=== PATIENT | male | born 1930 | race Caucasian/White ===

== ENCOUNTER 2018-02-04 12:37 | Emergency (ER) | payer MEDICARE ==
[~2018-02-04] VITALS: Ht 170.2 cm; Wt 86.4 kg
[2018-02-04 12:42] VITALS: Ht 170.2 cm; Wt 86.4 kg
[2018-02-04] MEDS ORDERED: PLAVIX75 MG PO (12:46)
[2018-02-04] MEDS ORDERED: ASPIRIN81 MG (12:47)
[2018-02-04] MEDS ORDERED: ALTACE5 MG (12:47)
[2018-02-04] MEDS ORDERED: ZOCOR80 MG PO (12:47)
[2018-02-04 13:13] LABS: APPEARANCE CLEAR (CLEAR); COLOR YELLOW (YELLOW)
[2018-02-04 13:14] LABS: BILIRUBIN NEGATIVE (NEGATIVE); GLUCOSE NEGATIVE (NEGATIVE); KETONE NEGATIVE (NEGATIVE); NITRITE NEGATIVE (NEGATIVE); PROTEIN NEGATIVE (NEGATIVE); SPECIFIC GRAVITY 1.025 (1.005-1.020); UROBILINOGEN NORMAL (NORMAL)
[2018-02-04 14:37] LABS: BASOPHILS 0.1 % (0-2); EOSINOPHILS 0.2 % (0-7); HEMATOCRIT 37.1 % (42.0-54.0); HEMOGLOBIN 12.4 g/dL (13.5-17.5); IMMATURE GRANULOCYTES 0.4 % (0-5); LYMPHOCYTES 5.4 % (15-50); MCH 32.5 pg (26.0-34.0); MCHC 33.4 g/dL (31.0-37.0); MCV 97.1 fL (80.0-100.0); MEAN PLATELET VOLUME 10.6 fL (7.4-10.4); MONOCYTES 9.4 % (2-11); NEUTROPHILS 84.5 % (40-80); PLATELET COUNT 186 10x3/uL (130-400); RBC 3.82 10x6/uL (4.20-6.10); RDW 13.4 % (11.5-14.5); WBC 10.2 10x3/uL (4.8-10.8)
[2018-02-04 14:48] LABS: ALKALINE PHOSPHATASE 68 U/L (46-116); ALT (SGPT) 15 U/L (10-68); AMYLASE - SERUM 36 U/L (25-115); BILIRUBIN - TOTAL 0.72 mg/dL (0.2-1.3); CALC OSMOLALITY 278 mosm/kg (275-300); CALCIUM 8.7 mg/dL (8.5-10.1); CARBON DIOXIDE 25.7 mmol/L (21.0-32.0); CHLORIDE - SERUM 105 mmol/L (98-107); CREATININE - SERUM 0.9 mg/dL (0.6-1.3); GLUCOSE 108 mg/dL (74-106); LIPASE 75 U/L (73-393); PROTEIN - SERUM 5.7 g/dL (6.4-8.2); SODIUM 138 mmol/L (136-145); UREA NITROGEN 19 mg/dL (7-18); eGFR NON AFRICAN AMERICAN 85 mL/min (90-120)
[2018-02-04] MEDS ORDERED: LOMOTIL 2.5-0.1 EAC1 PO (17:00)
[2018-02-04 18:06] VITALS: BP 111/62
== END 2018-02-04 18:07 | disposition home or self-care (01) ==
LOC: D.ER 12:37
PROVIDERS: Emergency Medicine
DX: R10.32 Left lower quadrant pain (principal); I25.10 Atherosclerotic heart disease of native coronary artery without angina pectoris; I10 Essential (primary) hypertension

== ENCOUNTER 2018-11-18 10:51 | Inpatient (IN) | payer MEDICARE, MEDICAID ==
[~2018-11-18] VITALS: Ht 170.2 cm; Wt 86.4 kg
[~2018-11-18 10:51] MED LIST: ALTACE5 MG; ASPIRIN81 MG PO; LOMOTIL 2.5-0.1 EAC1 PO; PLAVIX75 MG PO; ZOCOR80 MG PO
[2018-11-18 11:27] LABS: BASOPHILS 0.1 % (0-2); EOSINOPHILS 0.2 % (0-7); HEMOGLOBIN 13.8 g/dL (13.5-17.5); IMMATURE GRANULOCYTES 0.3 % (0-5); LYMPHOCYTES 11.3 % (15-50); MCH 32.4 pg (26.0-34.0); MCHC 34.5 g/dL (31.0-37.0); MCV 93.9 fL (80.0-100.0); MEAN PLATELET VOLUME 11.1 fL (7.4-10.4); MONOCYTES 12.1 % (2-11); RBC 4.26 10x6/uL (4.20-6.10); RDW 13.1 % (11.5-14.5); WBC 9.1 10x3/uL (4.8-10.8)
[2018-11-18 11:28] LABS: PLATELET COUNT 257 10x3/uL (130-400)
[2018-11-18 11:42] LABS: INR 1.12 (0.85-1.17); PROTIME 13.9 SECONDS (11.6-15.0)
[2018-11-18 11:56] LABS: ALBUMIN 3.2 g/dL (3.4-5.0); ALKALINE PHOSPHATASE 77 U/L (46-116); ALT (SGPT) 16 U/L (10-68); BILIRUBIN - TOTAL 0.57 mg/dL (0.2-1.3); CALC OSMOLALITY 278 mosm/kg (275-300); CALCIUM 8.7 mg/dL (8.5-10.1); CARBON DIOXIDE 28.3 mmol/L (21.0-32.0); CHLORIDE - SERUM 104 mmol/L (98-107); GLUCOSE 109 mg/dL (74-106); PROTEIN - SERUM 6.3 g/dL (6.4-8.2); SODIUM 138 mmol/L (136-145); UREA NITROGEN 18 mg/dL (7-18); eGFR NON AFRICAN AMERICAN 75 mL/min (90-120)
[2018-11-18 12:06] LABS: CREATINE KINASE 31 UL (21-232); LIPASE 102 U/L (73-393); MAGNESIUM - SERUM 1.9 mg/dL (1.8-2.4); PRO BNP 1563 pg/mL (0-450); THYROID STIMULATING HORMONE 0.91 uIU/mL (0.36-3.74); TROPONIN-I < 0.017 ng/mL (0.000-0.060)
[2018-11-18 12:49] LABS: APPEARANCE CLEAR (CLEAR); BILIRUBIN NEGATIVE (NEGATIVE); COLOR YELLOW (YELLOW); GLUCOSE NEGATIVE (NEGATIVE); KETONE NEGATIVE (NEGATIVE); NITRITE NEGATIVE (NEGATIVE); PROTEIN NEGATIVE (NEGATIVE); SPECIFIC GRAVITY 1.015 (1.005-1.020); UROBILINOGEN NORMAL (NORMAL)
[2018-11-18 13:16] VITALS: BP 90/66
--- NOTE | 2018-11-18 14:22 | NUR ---
PATIENT ARRIVED TO THE FLOOR FROM THE ER VIA BED WITH A HOSPITAL PERSONEL. HE IS ALERT AND ORIENTED AND DENIES ANY NEEDS AT THIS TIME. HE WAS ADMITTED FOR PNEUMONIA, AND HE HAD BEEN REPORTING RIGHT LOWER CHEST PAIN. HE HAS UPPER ABD PAIN. HE IS ON ROOM AIR. THE HAS A 20 G IV IN HIS RIGHT FOREARM. HE HAS A B/P OF 90/[address] WAS AWARE. THE DR SAID HE DID NOT THINK GIVING A BOLUS WOULD BE APPROPRIATE BECAUSE PATIENT HAS A HX OF CHF.
[2018-11-18 15:11] VITALS: BP 97/59; Ht 170.2 cm; Wt 86.4 kg
[2018-11-18 16:00] VITALS: BP 97/59
--- NOTE | 2018-11-18 19:33 | NUR ---
EVENING ROUNDS MADE. PT LAYING IN BED RESTING. RESPIRATORY IN ROOM AT THIS TIME. PT DENIES PAIN. NO FURTHER CONCERNS. BED LOWERED AND LOCKED. CL IN REACH. WILL CTM.
[2018-11-18 20:00] VITALS: BP 107/48
--- NOTE | 2018-11-18 21:22 | NUR ---
VITALS STABLE. PT TOOK MEDS WITHOUT DIFFICULTY. DENIES PAIN AT THIS TIME. PT STATES THAT HE TAKES A SLEEPING PILL AT HOME. INFORMED PT THAT I WOULD CHECK TO SEE WHAT HE CAN HAVE. AFTER CHECKING PT EMAR, HE HAD NO SLEEPING PILL ORDERED. PT HOME MED REC WAS NOT COMPLETED ACCURATELY AND HIS HOME SLEEPING PILL WAS NOT LISTED AND THE PT WAS UNABLE TO TELL ME WHAT SLEEPING PILL HE TAKES AT HOME. HERNAN LE PAGED FOR ORDERS FOR A SLEEPING PILL FOR PT TONIGHT. ORDERS GIVEN FOR BENADRYL 50 MG ONE TIME. NO FURTHER ORDERS AT THIS TIME. FALL PRECAUTIONS IN PLACE. BED LOWERED AND LOCKED. CL IN REACH. WILL CTM.
--- NOTE | 2018-11-19 00:43 | NUR ---
I have reviewed this patient and I concur with the Shift Assessment completed by the Licensed Practical Nurse today this shift.
[2018-11-19 04:30] VITALS: BP 120/59
[2018-11-19 06:04] LABS: BASOPHILS 0 % (0-2); EOSINOPHILS 0.9 % (0-7); HEMATOCRIT 37.6 % (42.0-54.0); IMMATURE GRANULOCYTES 0.5 % (0-5); LYMPHOCYTES 20.4 % (15-50); MCH 32.6 pg (26.0-34.0); MCHC 34.6 g/dL (31.0-37.0); MCV 94.2 fL (80.0-100.0); MEAN PLATELET VOLUME 11.1 fL (7.4-10.4); MONOCYTES 13.3 % (2-11); NEUTROPHILS 64.9 % (40-80); PLATELET COUNT 211 10x3/uL (130-400); RBC 3.99 10x6/uL (4.20-6.10); RDW 13.1 % (11.5-14.5); WBC 7.6 10x3/uL (4.8-10.8)
[2018-11-19 06:43] LABS: ALBUMIN 2.9 g/dL (3.4-5.0); ALKALINE PHOSPHATASE 72 U/L (46-116); ALT (SGPT) 14 U/L (10-68); BILIRUBIN - TOTAL 0.59 mg/dL (0.2-1.3); CALC OSMOLALITY 276 mosm/kg (275-300); CALCIUM 8.4 mg/dL (8.5-10.1); CARBON DIOXIDE 25.7 mmol/L (21.0-32.0); CHLORIDE - SERUM 105 mmol/L (98-107); CREATININE - SERUM 0.9 mg/dL (0.6-1.3); GLUCOSE 99 mg/dL (74-106); PROTEIN - SERUM 5.8 g/dL (6.4-8.2); SODIUM 138 mmol/L (136-145); UREA NITROGEN 16 mg/dL (7-18); eGFR NON AFRICAN AMERICAN 84 mL/min (90-120)
[2018-11-19 08:32] VITALS: BP 138/67
[2018-11-19 11:50] VITALS: BP 135/63
[2018-11-19 15:26] VITALS: BP 137/66
--- NOTE | 2018-11-19 16:32 | NUR ---
SCD'S ON AND ACTIVE WHEN THE PATIENT IS IN THE BED AND ALLOWS
--- NOTE | 2018-11-19 19:12 | MORECARE ---
CASE MANAGEMENT DISCHARGE SUMMARY PATIENT: GENARO BAIRES UNIT: [id number] ADM DATE: 11/18/18 AGE: 88 : [birth year] SEX: M ROOM/BED: D.2105 AUTHOR: AUSTEN URBANO PHYSICIAN: REFERRING PHYSICIAN: CHASE KATE MD DATE OF SERVICE: 11/19/18 Discharge Plan Patient Name: GENARO BAIRES [facility] [facility] 1930 Planned Disposition: Home Anticipated Discharge Date: Discharge Date: Expected LOS: Initial Reviewer: [email or web address] Initial Review Date: 11/18/2018 Generated: 11/19/18 8:12 pm DCPIA - Discharge Planning Initial Assessment Updated by [email or web address]: Erika Lacey on 11/19/18 7:10 pm * Is the patient Alert and Oriented? Yes * How many steps to enter\exit or inside your home? 5 w/rail * PCP States he has no local MD. States he goes to [place] q6 months to see his MD at a clinic * Pharmacy [facility] * Preadmission Environment Home with Family * ADLs Independent * Equipment Cane Walker * Other Equipment denies any other DME * List name and contact numbers for known caregivers / representatives who currently or will assist patient after discharge: States he has a son and dtr . Does not wish to give contact information * Verbal permission to speak to the caregivers and representatives has been obtained from the patient. No * Community resources currently utilized None * Please name any agencies selected above. N/A * Additional services required to return to the preadmission environment? No * Can the patient safely return to the preadmission environment? Yes Patient Name: GENARO BAIRES Page [id number] at 1912 All edits/amendments must be made on the electronic document DICTATION DATE: 11/19/181911 SELF PAY SPECIALIST: SREE 11/19/181911 RPT#: [id number] DC DATE: STATUS: ADM IN [facility] [address] [place] [address] END OF REPORT
--- NOTE | 2018-11-19 19:21 | MORECARE ---
CASE MANAGEMENT DISCHARGE SUMMARY PATIENT: GENARO BAIRES UNIT: [id number] ADM DATE: 11/18/18 AGE: 88 : [birth year] SEX: M ROOM/BED: D.2105 AUTHOR: YOLIE,DOC PHYSICIAN: REFERRING PHYSICIAN: CHASE KATE MD DATE OF SERVICE: 11/19/18 Discharge Plan Patient Name: GENARO BAIRES Facility: [facility]:[place] : 1930 Planned Disposition: Home Anticipated Discharge Date: Discharge Date: Expected LOS: Initial Reviewer: [email or web address] Initial Review Date: 11/18/2018 Generated: 11/19/18 8:20 pm Comments DCP- Discharge Planning Updated by [email or web address]: Erika Lacey on 11/19/18 6:[address] CM MET WITH THE PATIENT AT THE BEDSIDE.. CM EXPLAINED MY ROLE. RECEIVED PERMISSION TO CONTINUE ASSESSMENT. HE IS UNHAPPY. STATES HE HAS NOT SEEN A DOCTOR OR HAD HIS MEDICATIONS. STATES HE WILL BE LEAVING AT 1999 IF NO ONE COMES. REPORTEDLY THE PATIENT HAD DISCUSSED LEAVING EARLIER BUT DECIDED TO STAY AFTER SPEAKING W/ THE NURSE. THE STAFF STATES HE WAS SEEN BY DR KATE AND HERNAN THE GEOSPATIAL TECHNOLOGIST. HE HAS MEDICATIONS ORDERED AND SIGNED GIVEN. REPORTED CONCERNS TO STAFF. STATES HE LIVES WITH HIS SON AND DAUGHTER. HE SAYS HE IS INDEPENDENT IN HIS CARE. HE HAS A CANE AND A WALKER. STATES HE RARELY USES THE WALKER. DENIES ANY OTHER DME. NO LOCAL MD. HE USES [facility]. DENIES ANY COMMUNITY OR HOME HEALTH SERVICES. DENIES ANY NEED FOR SERVICES. CM WILL FOLLOW TO ASSIST IS APPROPRIATE. DCPIA - Discharge Planning Initial Assessment Updated by [email or web address]: Erika Lacey on 11/19/18 7:10 pm * Is the patient Alert and Oriented? Yes * How many steps to enter\exit or inside your home? 5 w/rail * PCP States he has no local MD. States he goes to [place] q6 months to see his MD at a clinic * Pharmacy [facility] * Preadmission Environment Home with Family * ADLs Independent * Equipment Cane Walker * Other Equipment denies any other DME * List name and contact numbers for known caregivers / representatives who currently or will assist patient after discharge: States he has a son and dtr . Does not wish to give contact information * Verbal permission to speak to the caregivers and representatives has been obtained from the patient. No * Community resources currently utilized None * Please name any agencies selected above. N/A * Additional services required to return to the preadmission environment? No * Can the patient safely return to the preadmission environment? Yes Last DP export: 11/19/18 6:12 p Patient Name: GENARO BAIRES Page [id number] at 1921 All edits/amendments must be made on the electronic document DICTATION DATE: 11/19/181919 RETAIL SPECIALIST: SREE 11/19/181919 RPT#: [id number] DC DATE: STATUS: ADM IN [facility] [address] [place] [address] END OF REPORT
--- NOTE | 2018-11-19 19:23 | NUR ---
EVENING ROUNDS MADE. PT SITTING UP IN BED RESTING. DENIES PAIN AT THIS TIME. PT COMPLAINED TO CASE MANAGEMENT THAT HE HASNT SEEN A DOCTOR OR HASNT BEEN GETTING ANY MEDICATIONS. REASSURED PT THAT THE DOCTOR CAME TO SEE HIM TODAY AND THAT I WOULD BRING HIM HIS MEDICATIONS IN A FEW MINUTES. PT OKAY WITH POC. NO FURTHER CONCERNS AT THIS TIME. BED LOWERED AND LOCKED. CL IN REACH. WILL CMT.
--- NOTE | 2018-11-19 19:47 | NUR ---
PT IN [place] THAT HE HAS NOT SEEN A DOCTOR AND IS NOT GETTING MEDICATION. PT STATED THAT HE NEEDS HIS IV OUT AND HE IS LEAVING. ESCORTED PT BACK TO ROOM AND TRIED TO TALK INTO STAYING UNTIL T[place] UNTIL DR. CORBETT. ASSURED PT THAT THE DOCTOR SAW HIM TODAY AND THAT HE WAS GETTING THE APPROPRIATE TREATMENT. PT INSISTANT THAT HE LEAVE STATED "I AM GOING TO CALL THE POLICE." "I AM GOING TO LEAVE AND GO TO THE OTHER HOSPITAL AND TELL THEM HOW MUCH OF A SHIT HOLE THIS PLACE IS" AFTER TYRING TO CONTINUE TO CONVINCE PT TO CALM DOWN AND SIT DOWN, PT STATED THAT HIS SON WAS ON HIS WAY TO GET HIM. I INFORMED PT THAT HE WOULD NEED TO SIGN A AMA FORM AND EXPLAINED THAT INSURANCE WOULD NOT PAY FOR HIS STAY. PT STATED "I AM NOT SIGNING SHIT FOR YOUR BENEFIT" PAGED REY BECERRA. HE STATED THAT WE COULD NOT LET PT LEAVE AMA IF HE WAS CONFUSED. ASKED PT FULL SET OF QUESTIONS AND PT ANSWERED THEM CORRECTLY. PT A/O X 4. PT STATED "I AM 88 DAMN YEARS OLD AND I KNOW MY RIGHTS" INFORMED REY BECERRA. AMA FORMED SIGNED AND WITNESS BY NURSING STAFF THAT PT REFUSED TO SIGN. IV REMOVED TIP INTACT. PT TOLD HE WAS FREE TO LEAVE WHEN RIDE ARRIVED. NO FURTHER CONCERNS AT THIS TIME.
--- NOTE | 2018-11-19 20:42 | NUR ---
ASKED PT IF HE REMEMBERED HERNAN THE DOCTOR IN [place] COMING TO SEE HIM AND HAVING A LONG CONVERSTATION WITH HIM. PT STATED "HES NOT A REAL DOCTOR AND HE TOLD ME SO" ALSO ASKED PT WHAT MEDICAITONS WE COULD GET FOR HIM THAT HE IS AWARE THAT WE ARE NOT GIVING HIM THAT HE IS UPSET ABOUT. IF THERE IS SOMETHING THAT I CAN RELAY TO HERNAN THE INSPECTION AND TESTING SUPERVISOR THAT HE CAN POSSIBLY PRESCRIBE FOR HIM. PT STILL IRATE AND UNWILLING TO COOPPERATE.
--- NOTE | 2018-11-19 20:44 | NUR ---
OT NOTE: PT COMPLETED SHOWER TASKS WITH MIN A. PT COMPLETED GROOMING WITH SPV. PT COMPLETED DRESSING TASKS WITH SBA. PT COMPLETED ADL MOB WITH SPV. PT COMPLETED BED MOB MOD I. THANK YOU, YOSELYN PARADA
--- NOTE | 2018-11-19 20:45 | NUR ---
PT STATED HIS NAME HIS , THE YEAR, WHERE HE WAS (THE HOSPITAL), AND THE DAY OF THE WEEK. PT A/O X 4. NO S/S OF COFUSION AT THIS TIME.
--- NOTE | 2018-11-19 20:46 | NUR ---
FAMILY TO ROOM TO ESCORT PT HOME. PT DC HOME VIA ABMLATORY.
--- NOTE | 2018-11-20 08:35 | MORECARE ---
CASE MANAGEMENT DISCHARGE SUMMARY PATIENT: GENARO BAIRES UNIT: [id number] ADM DATE: 11/18/18 AGE: 88 : [birth year] SEX: M ROOM/BED: D.2105 AUTHOR: YOLIE,DOC PHYSICIAN: REFERRING PHYSICIAN: CHASE KATE MD DATE OF SERVICE: 11/20/18 Discharge Plan Patient Name: GENARO BAIRES Facility: [facility]:[place] : 1930 Planned Disposition: Home Anticipated Discharge Date: 11/19/18 Discharge Date: 11/19/2018 Expected LOS: 1 Initial Reviewer: [email or web address] Initial Review Date: 11/18/2018 Generated: 11/20/18 9:34 am Comments DCP- Discharge Planning Updated by [email or web address]: Erika Lacey on 11/19/18 6:[address] CM MET WITH THE PATIENT AT THE BEDSIDE.. CM EXPLAINED MY ROLE. RECEIVED PERMISSION TO CONTINUE ASSESSMENT. HE IS UNHAPPY. STATES HE HAS NOT SEEN A DOCTOR OR HAD HIS MEDICATIONS. STATES HE WILL BE LEAVING AT 1999 IF NO ONE COMES. REPORTEDLY THE PATIENT HAD DISCUSSED LEAVING EARLIER BUT DECIDED TO STAY AFTER SPEAKING W/ THE NURSE. THE STAFF STATES HE WAS SEEN BY DR KATE AND HERNAN FERNANDEZ MATERIAL DAMAGE ADJUSTER. HE HAS MEDICATIONS ORDERED AND SIGNED GIVEN. REPORTED CONCERNS TO STAFF. STATES HE LIVES WITH HIS SON AND DAUGHTER. HE SAYS HE IS INDEPENDENT IN HIS CARE. HE HAS A CANE AND A WALKER. STATES HE RARELY USES THE WALKER. DENIES ANY OTHER DME. NO LOCAL MD. HE USES [facility]. DENIES ANY COMMUNITY OR HOME HEALTH SERVICES. DENIES ANY NEED FOR SERVICES. CM WILL FOLLOW TO ASSIST IS APPROPRIATE. DCPIA - Discharge Planning Initial Assessment Updated by [id number]: Erika Lacey on 11/19/18 7:10 pm * Is the patient Alert and Oriented? Yes * How many steps to enter\exit or inside your home? 5 w/rail * PCP States he has no local MD. States he goes to [place] q6 months to see his MD at a clinic * Pharmacy [facility] * Preadmission Environment Home with Family * ADLs Independent * Equipment Cane Walker * Other Equipment denies any other DME * List name and contact numbers for known caregivers / representatives who currently or will assist patient after discharge: States he has a son and dtr . Does not wish to give contact information * Verbal permission to speak to the caregivers and representatives has been obtained from the patient. No * Community resources currently utilized None * Please name any agencies selected above. N/A * Additional services required to return to the preadmission environment? No * Can the patient safely return to the preadmission environment? Yes Last DP export: 11/19/18 6:21 p Patient Name: GENARO BAIRES Page [id number] at 0835 All edits/amendments must be made on the electronic document DICTATION DATE: 11/20/18833 COMBINATION WINDOW INSTALLER: SREE 11/20/1834 RPT#: [id number] DC DATE:11/19/18 STATUS: DIS IN [facility] [address] [place] [address] END OF REPORT
== END 2018-11-19 19:56 | disposition home or self-care (01) | DRG 193 ==
LOC: D.ER 10:51 → D.M2 12:53
PROVIDERS: Emergency Medicine; Family Medicine; ADMIT Family Medicine; ATTEND Family Medicine
DX: J18.9 Pneumonia, unspecified organism (principal); I50.33 Acute on chronic diastolic (congestive) heart failure; I11.0 Hypertensive heart disease with heart failure; I07.1 Rheumatic tricuspid insufficiency; I25.10 Atherosclerotic heart disease of native coronary artery without angina pectoris